=== PATIENT | female | born 1940 | race African-American/Black ===

== ENCOUNTER 2017-03-30 20:40 | Emergency (ER) | payer OTHER, BC ==
[~2017-03-30] VITALS: Ht 154.9 cm; Wt 59.0 kg
--- NOTE | ~2017-03-30 | EKG ---
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
[2017-03-30] MEDS ORDERED: NORVASC10 MG PO (20:52)
[2017-03-30] MEDS ORDERED: GLYBURIDE 5 MG T5 M1 GT (20:52)
[2017-03-30] MEDS ORDERED: TOPROL XL25 MG PO (20:53)
[2017-03-30 22:01] LABS: ABSOLUTE NEUTROPHILS 5.5 thou/uL (1.4-8.2); BASOPHILS 0.5 % (0.0-2.0); EOSINOPHILS 0.3 % (0.0-3.0); HEMATOCRIT 43.1 % (37.0-47.0); LYMPHOCYTES 19.1 % (24.0-44.0); MANUAL DIFF NO; MCH 26.2 pg (26.0-34.0); MCHC 32.6 g/dL (28.0-37.0); MCV 80.3 fL (80.0-100.0); MONOCYTES 6.9 % (1.0-8.0); PLATELET COUNT 342 thou/uL (150-400); POLYS 73.2 % (36.0-66.0); RBC 5.37 mil/uL (4.20-5.00); RDW 14.3 % (10.5-14.5); WBC 7.5 thou/uL (4.0-11.0)
[2017-03-30 22:13] LABS: CALCIUM 9.3 mg/dL (8.5-10.1); CREATININE 0.7 mg/dL (0.6-1.0); POTASSIUM 3.1 mmol/L (3.5-5.1)
[2017-03-30 22:18] LABS: ALBUMIN 4.3 g/dL (3.4-5.0); TOTAL BILIRUBIN 0.1 mg/dL (<0.1-1.0)
[2017-03-30 22:52] LABS: URINE BILIRUBIN NEGATIVE (Negative); URINE BLOOD NEGATIVE (Negative); URINE COLOR YELLOW; URINE GLUCOSE-RANDOM* NEGATIVE (Negative); URINE KETONES NEGATIVE (Negative); URINE NITRITE NEGATIVE (Negative); URINE PROTEIN (DIPSTICK) NEGATIVE (Negative); URINE SPECIFIC GRAVITY <= 1.005 (1.003-1.035); URINE UROBILINOGEN 0.2 E.U./dl (0.2-1.0)
[2017-03-30 23:45] VITALS: BP 124/86
== END 2017-03-30 23:45 | disposition home or self-care (01) ==
LOC: ER 20:40
PROVIDERS: Nurse Practitioner Family
DX: E11.649 Type 2 diabetes mellitus with hypoglycemia without coma (principal); T38.3X5A Adverse effect of insulin and oral hypoglycemic [antidiabetic] drugs, initial encounter; I10 Essential (primary) hypertension; E78.5 Hyperlipidemia, unspecified; Z90.710 Acquired absence of both cervix and uterus; Z88.8 Allergy status to other drugs, medicaments and biological substances; Y92.89 Other specified places as the place of occurrence of the external cause